=== PATIENT | male | born 1940 | race Caucasian/White ===

== ENCOUNTER → 2016-04-27 | Outpatient (CLI) | payer MEDICARE, OTHER ==
[~2016-04-27] MED LIST: ALTA5CAP3 PO; AMLO5TAB96 PO; ASCO500C PO; ASPI-110 PO; ASPI81 PO; ATEN1TAB73 PO; ATEN25TA PO; AUGM250S2 PO; BRIM0.155 OP; CALC600T25 PO; CHOL50006 PO; DORZ1SOL2 OU; FISH500C PO; FOLBTAB4 PO; LORT5TAB PO; LOSA100T PO; MULT1TAB84 PO; NEXI40CA PO; OMEP20TA PO; SIMV40TA OR; TAB-TAB PO; VITA500T10 PO; ZOCO40TA PO
[2016-04-27 13:33] LABS: AUTOMATED NEUTROPHIL # 4.4 TH/MM3 (1.8-7.7); BASOPHIL % 0.6 % (0.0-2.0); EOSINOPHIL # 0.2 TH/MM3 (0-0.4); EOSINOPHIL % 3.3 % (0.0-4.0); HEMATOCRIT 38.6 % (39.0-51.0); HEMO FLAGS DIFF FINAL; LYMPH % 25.7 % (9.0-44.0); LYMPHOCYTE # 1.7 TH/MM3 (1.0-4.8); MEAN CELL VOLUME 88.9 FL (80.0-100.0); MEAN CORPUSCULAR HEMOGLOBIN 31.1 PG (27.0-34.0); MEAN CORPUSCULAR HGB CONC 35.1 % (32.0-36.0); NEUT % 65.4 % (16.0-70.0); PLATELET COUNT 211 TH/MM3 (150-450); RED BLOOD COUNT 4.35 MIL/MM3 (4.50-5.90); WHITE BLOOD COUNT 6.7 TH/MM3 (4.0-11.0)
[2016-04-27 13:44] LABS: BLOOD, URINE NEG (NEG); GLUCOSE,URINE NEG (NEG); KETONE, URINE NEG (NEG); NITRITE,URINE NEG (NEG); PH, URINE 6.5 (5.0-8.5); URINE COLOR YELLOW (YELLW/STRAW)
[2016-04-27 13:48] LABS: URINE TOTAL PROTEIN TIMED 8.4 MG/DL
[2016-04-27 14:01] LABS: BICARBONATE 29.2 MEQ/L (21.0-32.0); POTASSIUM 4.1 MEQ/L (3.5-5.1)
[2016-04-27 14:15] LABS: KAPPA LAMBDA RATIO 2.28 (1.57-3.93); TOTAL PROTEIN SPE 7.2 GM/DL (6.0-7.6)
[2016-04-27 22:53] LABS: ALBUMIN SPE 4.81 GM/DL (3.50-5.00); ALPHA 1 GLOBULIN 0.24 GM/DL (0.11-0.29); ALPHA 2 GLOBULIN 0.79 GM/DL (0.22-1.00); BETA GLOBULINS (SPE) 0.65 GM/DL (0.53-1.03)
[2016-04-30 03:54] LABS: MYELOPEROXIDASE LESS THAN 1.0 AI (<1.0); PROTEINASE-3 LESS THAN 1.0 AI (<1.0)
[2016-04-30 13:57] LABS: SCL-70 IGG AUTOAB <1.0 NEG AI (<1.0 NEGATIVE)
[2016-05-02 03:54] LABS: KAPPA/LAMBDA FREE 1.2 (0.26-1.65)
== END ==
LOC: PLAB 09:29
PROVIDERS: ATTEND Internal Medicine Nephrology
DX: N18.3 Chronic kidney disease, stage 3 (moderate) (principal); L94.0 Localized scleroderma [morphea]
CPT/HCPCS: 36415; 80069; 81001; 82306; 82570; 82784; 83883; 83970; 84156; 84165; 85025; 86021; 86160; 86235; 86334; 86335; 86803; 87340

== ENCOUNTER 2016-06-30 08:07 | Emergency (ER) | payer MEDICARE, OTHER ==
[~2016-06-30] VITALS: Ht 170.2 cm; Wt 63.7 kg
[~2016-06-30 08:07] MED LIST changes: -ASCO500C PO; -ASPI-110 PO; -ATEN25TA PO; -AUGM250S2 PO; -CALC600T25 PO; -CHOL50006 PO; -FOLBTAB4 PO; -LOSA100T PO; -MULT1TAB84 PO; -OMEP20TA PO; -ZOCO40TA PO
[2016-06-30 08:09] VITALS: BP 160/90; PULSE 67; RESP 17; TEMP 97.6; O2SAT 97
[2016-06-30] MEDS ORDERED: DEXAMETHASONE SOD PHOS 4 MG/ML VIAL IM ONE (08:30)
--- NOTE | 2016-06-30 08:32 | PD ---
HPI Chief Complaint: ENT Complaint Time Seen by Provider: 08:14 Travel History International Travel<30 days: No Contact w/Intl Traveler<30days: No Traveled to known affect area: No History of Present Illness HPI Patient is a 75-year-old male with history of HTN, HLD, CAD with previous PCI here with complaint of sore throat. Patient states the has had approximately 3 weeks of a sore throat. It seems to be worsening and not getting any better. When asked where his throat is sore, patient actually points more to the laryngeal region, though he does complain of some posterior pharyngeal pain as well. Pain is made worse with swallowing, and at this point he states that he has difficulty and pain with swallowing, including oropharyngeal secretions. He does note a history of GERD, but states that overall it seems to be well controlled and he has not been having a lot of reflux symptoms recently. Patient has not had any fevers or chills, night sweats. He has a remote short history of tobacco smoking over 30 years ago. Denies any oropharyngeal bleeding. No previous trauma or surgery within the area. PFSH Past Medical History Cardiac Catheterization: Yes High Cholesterol: Yes Coronary Artery Disease: Yes Diminished Hearing: No Hypertension: Yes ?: Not Social History Alcohol Use: Yes (1-2 DRINKS A DAY) Tobacco Use: No Substance Use: No Allergies-Medications (Allergen,Severity, Reaction): Coded Allergies: No Known Allergies (Verified , 06/30/16) Reported Meds & Prescriptions Reported Meds & Active Scripts Active Reported Multivitamin Adults (Multiple Vitamins W/ Minerals) 1 Tab 1 Tab PO DAILY Calcium (Calcium Carbonate) 600 Mg Tab 600 Mg PO DAILY Vitamin D (Cholecalciferol) 5,000 Unit Tab 5,000 Unit PO DAILY Vitamin C (Ascorbic Acid) 500 Mg Cap 500 Mg PO DAILY Aspirin 81 (Aspirin) 81 Mg Tabdr 162 Mg PO DAILY Folbic (Folic Rrzm-Afwjoqabsd-Hrqrlzrt) 2.5-25-2 Mg Tab 1 Tab PO DAILY Omeprazole 20 Mg Tab 20 Mg PO DAILY Zocor (Simvastatin) 40 Mg Tab 40 Mg PO HS Atenolol 25 Mg Tab 25 Mg PO HS Losartan (Losartan Potassium) 100 Mg Tab 100 Mg PO HS Review of Systems Except as stated in HPI: all other systems reviewed are Neg Physical Exam Narrative GENERAL: Thin elderly male in no acute distress SKIN: Focused skin assessment warm/dry. HEAD: Normocephalic. EYES:No scleral icterus. No injection or drainage. ENT: No nasal bleeding or discharge. Uvula is somewhat hydrops with the remainder of the posterior pharynx is only minimally erythematous without exudate. Mucous membranes pink and moist. NECK: Trachea midline. No JVD. No thyromegaly. No notable lymphadenopathy. Voice is hoarse with poor projection. CARDIOVASCULAR: Regular rate and rhythm. RESPIRATORY: No accessory muscle use. MUSCULOSKELETAL: Normal gait NEUROLOGICAL: Awake and alert. No obvious cranial nerve deficits. PSYCHIATRIC: Appropriate mood and affect; insight and judgment normal. Data Data Last Documented VS Vital Signs Date Time Temp Pulse Resp B/P Pulse Ox O2 Delivery O2 Flow Rate FiO2 06/30/16 08:25 16 06/30/16 08:09 97.6 67 160/[address] Soft Tiss Neck W/O Iv Cont (06/30/16 ) Dexamethasone Inj (Decadron Inj) (06/30/16 08:30) MDM Medical Decision Making Medical Screen Exam Complete: Yes Emergency Medical Condition: Yes Medical Record Reviewed: Yes Differential Diagnosis 75-year-old male with history of GERD, remote tobacco abuse here with 3 weeks of progressive sore throat and voice hoarseness. Differential includes laryngitis versus pharyngitis, GERD, laryngeal cancer or benign mass, vocal cord dysfunction. Narrative Course Patient given Decadron for hydrops uvula. CT soft tissue neck showed a thickened epiglottis and increased density in the priya-epiglottic fat. Patient should be evaluated for inflammatory versus neoplastic process. No evidence of lymphadenopathy or other significant soft tissue abnormality. Degenerative changes of the cervical spine. Clinically, his exam is not consistent with epiglottitis given the 3+ weeks of overall worsening. Patient will be discharged home with outpatient ENT referral for nasopharyngeal scope or direct laryngoscopy and further workup for rule out neoplastic process. Diagnosis Primary Impression: Hoarseness of voice Referrals: Bhupinder Vick MD 2 days call for outpatient appointment Ear / Nose / Throat Specialist 2 days Additional Instructions: Saltwater gargles as discussed. Follow-up with ENT for outpatient workup. Med/Other Pt SpecificInfo: No Change to Meds Disposition: 01 DISCHARGE HOME Condition: Stable Wendy Jaquez MD Jun 30, 2016 08:32
[2016-06-30] MEDS ORDERED: ZOCO40TA PO (08:43)
[2016-06-30] MEDS ORDERED: LOSA100T PO (08:43)
[2016-06-30] MEDS ORDERED: ATEN25TA PO (08:43)
[2016-06-30] MEDS ORDERED: ASPI-110 PO (08:51)
[2016-06-30] MEDS ORDERED: MULT1TAB84 PO (08:51)
[2016-06-30] MEDS ORDERED: FOLBTAB4 PO (08:51)
[2016-06-30] MEDS ORDERED: CALC600T25 PO (08:51)
[2016-06-30] MEDS ORDERED: ASCO500C PO (08:51)
[2016-06-30] MEDS ORDERED: OMEP20TA PO (08:51)
[2016-06-30] MEDS ORDERED: CHOL50006 PO (08:51)
--- NOTE | 2016-06-30 09:46 | RADHPO ---
EXAM DATE/TIME: 06/30/2016 09:05 [facility] COMPARISON: No previous studies available for comparison. INDICATIONS : Sore throat. RADIATION DOSE: 12.25 CTDIvol (mGy) MEDICAL HISTORY : Hypertension. Gastroesophageal reflux disease. SURGICAL HISTORY : None. ENCOUNTER: Initial ACUITY: 1 day PAIN SCORE: 4/10 LOCATION: neck TECHNIQUE: Volumetric scanning of the neck was performed. Using automated exposure control and adjustment of th e mA and/or kV according to patient size, radiation dose was kept as low as reasonably achievable to obtain optimal diagnostic quality images. FINDINGS: NASOPHARYNX: The nasopharyngeal airway has a normal configuration. No mucosal thickening or mass is seen. OROPHARYNX: The epiglottis is thickened measuring 1 cm in thickness. There is increased density in the preepiglot tic fat as well. The intrinsic muscles of the tongue are symmetric. The tonsillar pillars are intact . The prevertebral soft tissues are not thickened. LARYNX: The supraglottic, glottic, and infraglottic structures are intact. PARAPHARYNGEAL: The parapharyngeal space is intact. SALIVARY GLANDS: The parotid and submandibular glands are intact. LYMPH NODES: No enlarged or necrotic-appearing nodes. THYROID: Homogeneous enhancement without evidence of nodule. BONES: Degenerative disc disease with spondylosis is noted in the cervical spine CONCLUSION: Thickened epiglottis and increased density in the preepiglottic fat; patient should b e evaluated for inflammatory versus neoplastic process. No evidence of lymphadenopathy or other significant soft tissue abnormality. Degenerative spondylosis of the cervical spine. Rafael Cardona MD on June 30, 2016 at 9:40 Board Certified Radiologist. This report was verified electronically.
[2016-06-30 09:50] VITALS: PULSE 71; RESP 16; O2SAT 96
[2016-06-30] MEDS ORDERED: AUGM250S2 PO (10:04)
== END 2016-06-30 10:17 | disposition home or self-care (01) ==
LOC: PHED 08:07
DX: R49.0 Dysphonia (principal); R60.0 Localized edema; R13.10 Dysphagia, unspecified; I10 Essential (primary) hypertension; E78.00 Pure hypercholesterolemia, unspecified; Z86.79 Personal history of other diseases of the circulatory system
CPT/HCPCS: 70490; 96372; 99283; J1100

== ENCOUNTER → 2016-09-07 | Outpatient (CLI) | payer MEDICARE, OTHER ==
[~2016-09-07] MED LIST changes: -ALTA5CAP3 PO; -AMLO5TAB96 PO; +ASCO500C PO; +ASPI-110 PO; -ASPI81 PO; -ATEN1TAB73 PO; +ATEN25TA PO; +AUGM250S2 PO; -BRIM0.155 OP; +CALC600T25 PO; +CHOL50006 PO; -DORZ1SOL2 OU; -FISH500C PO; +FOLBTAB4 PO; -LORT5TAB PO; +LOSA100T PO; +MULT1TAB84 PO; -NEXI40CA PO; +OMEP20TA PO; -SIMV40TA OR; -TAB-TAB PO; -VITA500T10 PO; +ZOCO40TA PO
[2016-09-07 13:16] LABS: AUTOMATED NEUTROPHIL # 5.1 TH/MM3 (1.8-7.7); BASOPHIL % 0.5 % (0.0-2.0); EOSINOPHIL # 0.3 TH/MM3 (0-0.4); EOSINOPHIL % 3.4 % (0.0-4.0); HEMATOCRIT 39.4 % (39.0-51.0); HEMO FLAGS DIFF FINAL; LYMPH % 25.1 % (9.0-44.0); MEAN CELL VOLUME 88.8 FL (80.0-100.0); MEAN CORPUSCULAR HEMOGLOBIN 30.5 PG (27.0-34.0); MEAN CORPUSCULAR HGB CONC 34.3 % (32.0-36.0); MONO % 7.5 % (0.0-8.0); NEUT % 63.5 % (16.0-70.0); PLATELET COUNT 181 TH/MM3 (150-450); RED BLOOD COUNT 4.44 MIL/MM3 (4.50-5.90); RED CELL DISTRIBUTION WIDTH 13.3 % (11.6-17.2)
[2016-09-07 13:24] LABS: BLOOD, URINE NEG (NEG); GLUCOSE,URINE NEG (NEG); KETONE, URINE NEG (NEG); NITRITE,URINE NEG (NEG); URINE COLOR YELLOW (YELLW/STRAW)
[2016-09-07 13:25] LABS: COMMENT (UR) CULT NOT INDICATED; CULTURE IF INDICATED CULT NOT INDICATED
[2016-09-07 14:49] LABS: BICARBONATE 29.6 MEQ/L (21.0-32.0); POTASSIUM 4.1 MEQ/L (3.5-5.1)
== END ==
LOC: PLAB 07:59
PROVIDERS: ATTEND Internal Medicine Nephrology
DX: N18.3 Chronic kidney disease, stage 3 (moderate) (principal)
CPT/HCPCS: 36415; 80069; 81001; 82570; 83970; 84156; 85025

== ENCOUNTER → 2016-09-21 | Outpatient (CLI) | payer MEDICARE, OTHER ==
[2016-09-21 13:53] LABS: BICARBONATE 27.2 MEQ/L (21.0-32.0); POTASSIUM 4.3 MEQ/L (3.5-5.1)
== END ==
LOC: PLAB 10:35
PROVIDERS: ATTEND Internal Medicine Nephrology
DX: N18.3 Chronic kidney disease, stage 3 (moderate) (principal)
CPT/HCPCS: 36415; 80069

== ENCOUNTER → 2016-10-03 | Outpatient (CLI) | payer MEDICARE, OTHER ==
[2016-10-03 13:00] LABS: AUTOMATED NEUTROPHIL # 4.1 TH/MM3 (1.8-7.7); BASOPHIL % 0.5 % (0.0-2.0); EOSINOPHIL # 0.1 TH/MM3 (0-0.4); EOSINOPHIL % 2.1 % (0.0-4.0); HEMATOCRIT 38.8 % (39.0-51.0); HEMO FLAGS DIFF FINAL; LYMPH % 31.3 % (9.0-44.0); LYMPHOCYTE # 2.2 TH/MM3 (1.0-4.8); MEAN CORPUSCULAR HEMOGLOBIN 30.7 PG (27.0-34.0); MEAN CORPUSCULAR HGB CONC 35.4 % (32.0-36.0); NEUT % 59.1 % (16.0-70.0); PLATELET COUNT 215 TH/MM3 (150-450); RED BLOOD COUNT 4.46 MIL/MM3 (4.50-5.90); RED CELL DISTRIBUTION WIDTH 12.9 % (11.6-17.2); WHITE BLOOD COUNT 6.9 TH/MM3 (4.0-11.0)
[2016-10-03 13:11] LABS: ANION GAP 8 MEQ/L (5-15)
[2016-10-03 13:12] LABS: ALKALINE PHOSPHATASE 77 U/L (45-117); ALT (GPT) 34 U/L (12-78); AST (GOT) 23 U/L (15-37); BICARBONATE 28.2 MEQ/L (21.0-32.0); BLOOD UREA NITROGEN 16 MG/DL (7-18); CHLORIDE 85 MEQ/L (98-107); GLOMERULAR FILTRATION RATE 58 ML/MIN (>89); GLUCOSE,FASTING 92 MG/DL (74-99); HDL CHOLESTEROL 59.1 MG/DL (40.0-60.0); LDL CHOLESTEROL 58 MG/DL (0-99); POTASSIUM 4.3 MEQ/L (3.5-5.1); TOTAL BILIRUBIN ADULT 0.7 MG/DL (0.2-1.0)
[2016-10-03 14:05] LABS: SODIUM (NA) 121 MEQ/L (136-145)
== END ==
LOC: PLAB 09:11
PROVIDERS: ATTEND Family Medicine
DX: I12.9 Hypertensive chronic kidney disease with stage 1 through stage 4 chronic kidney disease, or unspecified chronic kidney disease (principal); N18.2 Chronic kidney disease, stage 2 (mild); E78.5 Hyperlipidemia, unspecified
CPT/HCPCS: 36415; 80053; 80061; 85025

== ENCOUNTER → 2016-10-04 | Outpatient (CLI) | payer MEDICARE, OTHER ==
[2016-10-04 11:08] LABS: POTASSIUM 4.8 MEQ/L (3.5-5.1)
== END ==
LOC: PLAB 10:03
PROVIDERS: ATTEND Family Medicine
DX: I10 Essential (primary) hypertension (principal); E87.1 Hypo-osmolality and hyponatremia
CPT/HCPCS: 36415; 80048; 84300

== ENCOUNTER → 2016-10-09 | Outpatient (CLI) | payer MEDICARE, OTHER ==
[2016-10-09 14:16] LABS: BICARBONATE 27.6 MEQ/L (21.0-32.0); POTASSIUM 4.4 MEQ/L (3.5-5.1)
== END ==
LOC: PLAB 11:06
PROVIDERS: ATTEND Internal Medicine Nephrology
DX: N18.3 Chronic kidney disease, stage 3 (moderate) (principal); E34.9 Endocrine disorder, unspecified
CPT/HCPCS: 36415; 80069; 84443

== ENCOUNTER → 2016-10-30 | Outpatient (CLI) | payer MEDICARE, OTHER ==
[2016-10-30 15:39] LABS: BLOOD, URINE NEG (NEG); COMMENT (UR) CULT NOT INDICATED; CULTURE IF INDICATED CULT NOT INDICATED; GLUCOSE,URINE NEG (NEG); KETONE, URINE NEG (NEG); NITRITE,URINE NEG (NEG); PH, URINE 5.5 (5.0-8.5); URINE COLOR YELLOW (YELLW/STRAW)
[2016-10-30 15:40] LABS: AUTOMATED NEUTROPHIL # 4.6 TH/MM3 (1.8-7.7); BASOPHIL % 0.6 % (0.0-2.0); EOSINOPHIL # 0.1 TH/MM3 (0-0.4); EOSINOPHIL % 1.9 % (0.0-4.0); HEMATOCRIT 35.5 % (39.0-51.0); HEMO FLAGS DIFF FINAL; LYMPH % 28.3 % (9.0-44.0); LYMPHOCYTE # 2.1 TH/MM3 (1.0-4.8); MEAN CELL VOLUME 88.2 FL (80.0-100.0); MEAN CORPUSCULAR HEMOGLOBIN 31.1 PG (27.0-34.0); MEAN CORPUSCULAR HGB CONC 35.3 % (32.0-36.0); MONO % 7.4 % (0.0-8.0); NEUT % 61.8 % (16.0-70.0); PLATELET COUNT 208 TH/MM3 (150-450); RED BLOOD COUNT 4.02 MIL/MM3 (4.50-5.90); RED CELL DISTRIBUTION WIDTH 13.2 % (11.6-17.2); WHITE BLOOD COUNT 7.4 TH/MM3 (4.0-11.0)
[2016-10-30 15:48] LABS: BICARBONATE 26.1 MEQ/L (21.0-32.0); POTASSIUM 4.3 MEQ/L (3.5-5.1)
== END ==
LOC: PLAB 11:37
PROVIDERS: ATTEND Internal Medicine Nephrology
DX: N18.3 Chronic kidney disease, stage 3 (moderate) (principal)
CPT/HCPCS: 36415; 80069; 81001; 82570; 83970; 84156; 85025

== ENCOUNTER → 2017-04-19 | Outpatient (CLI) | payer MEDICARE, OTHER ==
[~2017-04-19] MED LIST changes: -ASPI-110 PO; +ASPI1TAB57 PO; -CALC600T25 PO; +CALC600T5 PO; -OMEP20TA PO; +OMEP20TA93 PO
[2017-04-19 13:48] LABS: BASOPHIL % 0.6 % (0.0-2.0); EOSINOPHIL # 0.3 TH/MM3 (0-0.4); HEMATOCRIT 37.8 % (39.0-51.0); HEMOGLOBIN 13.3 GM/DL (13.0-17.0); LYMPH % 28.1 % (9.0-44.0); LYMPHOCYTE # 1.9 TH/MM3 (1.0-4.8); MEAN CELL VOLUME 90.5 FL (80.0-100.0); MEAN CORPUSCULAR HEMOGLOBIN 31.9 PG (27.0-34.0); MEAN CORPUSCULAR HGB CONC 35.3 % (32.0-36.0); MEAN PLATELET VOLUME 9.4 FL (7.0-11.0); MONOCYTE # 0.5 TH/MM3 (0-0.9); NEUT % 60.3 % (16.0-70.0); PLATELET COUNT 186 TH/MM3 (150-450); RED BLOOD COUNT 4.17 MIL/MM3 (4.50-5.90); RED CELL DISTRIBUTION WIDTH 13.4 % (11.6-17.2); WHITE BLOOD COUNT 6.7 TH/MM3 (4.0-11.0)
[2017-04-19 13:51] LABS: BACTERIA, URINE MANY /hpf; BILIRUBIN, URINE NEG (NEG); BLOOD, URINE NEG (NEG); GLUCOSE,URINE NEG (NEG); KETONE, URINE NEG (NEG); MUCUS URINE FEW /lpf (OCC); NITRITE,URINE NEG (NEG); PH, URINE 6.5 (5.0-8.5); SQUAMOUS EPITHELIAL CELL URINE <1 /hpf (0-5); URINE COLOR LIGHT-YELLOW (YELLW/STRAW); URINE LEUKOCYTE ESTERASE NEG (NEG)
[2017-04-19 13:59] LABS: AST (GOT) 25 U/L (15-37); BICARBONATE 27.7 MEQ/L (21.0-32.0); BLOOD UREA NITROGEN 15 MG/DL (7-18); CALCIUM 9.2 MG/DL (8.5-10.1); CHLORIDE 100 MEQ/L (98-107); CREATININE 1.23 MG/DL (0.60-1.30); GLOMERULAR FILTRATION RATE 57 ML/MIN (>89); GLUCOSE,FASTING 84 MG/DL (74-99); SODIUM (NA) 135 MEQ/L (136-145)
[2017-04-19 14:01] LABS: ALT (GPT) 26 U/L (12-78); CHOLESTEROL 144 MG/DL (120-200)
[2017-04-19 14:08] LABS: ALKALINE PHOSPHATASE 77 U/L (45-117); CHOLESTEROL/ HDL RATIO 2.51 RATIO; HDL CHOLESTEROL 57.3 MG/DL (40.0-60.0); LDL CHOLESTEROL 67 MG/DL (0-99); LDL CHOLESTEROL DIRECT 67 MG/DL (0-99); TOTAL BILIRUBIN ADULT 0.7 MG/DL (0.2-1.0); TOTAL PROTEIN 6.7 GM/DL (6.4-8.2); TRIGLYCERIDES 99 MG/DL (42-150)
== END ==
LOC: PLAB 08:42
PROVIDERS: ATTEND Family Medicine
DX: N18.3 Chronic kidney disease, stage 3 (moderate) (principal); E78.5 Hyperlipidemia, unspecified; I10 Essential (primary) hypertension; R82.99 Other abnormal findings in urine
CPT/HCPCS: 36415; 80053; 80061; 81001; 82306; 82570; 83721; 83970; 84100; 84156; 85025; 87086

== ENCOUNTER → 2017-05-10 | Outpatient (CLI) | payer MEDICARE, OTHER | LOC: PLAB 10:41 | PROVIDERS: ATTEND Physician Assistant | DX: R80.9 Proteinuria, unspecified (principal) | CPT/HCPCS: 82570; 84156 ==